=== PATIENT | male | born 2005 | race Hispanic/Latino ===

== ENCOUNTER → 2024-12-23 | Emergency (ER) | payer SELFPAY ==
[~2024-12-23] VITALS: Ht 170.2 cm; Wt 63.5 kg
[2024-12-23 18:23] VITALS: BP 142/79; PULSE 99; RESP 16; TEMP 97.8
--- NOTE | 2024-12-23 19:24 | ERN ---
General Chief Complaint: Cough Stated Complaint: FEVER, CONGESTION, TOOTHACHE Time Seen by MD: 18:28 Time Seen by Midlevel: 18:28 Source: patient History of Present Illness Initial Comments 19-year-old male who presents to the emergency department due to fever onset five days. Mother reports cough, congestion, body aches. Denies any abdominal pain, difficulty breathing, nausea, vomiting, diarrhea or further associated symptoms. Allergies: Coded Allergies: No Known Allergies (Unverified Allergy, Unknown, 12/23/24) Past Medical History Past Medical History: No Pertinent History Past Surgical History: Appendectomy ROS Dictation Constitutional: Positive for fever, body aches Negative for chills, and weight loss Eyes: Negative for injury, pain,redness, and discharge ENT: Positive for congestion Negative for injury,pain or swelling Cardiovascular: Negative for chest pain, palpitations, and edema Respiratory: Positive for cough Negative for shortness of breath, and wheezing, Abdomen/GI: Negative for abdominal pain, nausea, vomiting, diarrhea, and constipation Back: Negative for injury and pain : Negative for painful urination, bleeding or discharge MS/Extremity: Negative for injury and deformity Skin: Negative for rash, and discoloration Neuro: Negative for headache, weakness, numbness, tingling, and seizure Psych: Negative for suicide ideation, homicidal ideation, and hallucinations Physical Exam Physical Exam Dictation General: awake, alert, no acute distress Head/Face: Normocephalic, atraumatic Eyes: PERRL, EOMI, normal conjunctiva ENT: oral cavity clear, TMs clear, oral mucosa moist, mild erythematous pharynx Neck: Supple, normal range of motion Cardiovascular: RRR, normal S1/S2 Respiratory: CTAB, no respiratory distress, no rales or wheezes Skin: Warm, dry, normal turgor, no rash MS/Extremity: Pulses equal, no cyanosis, neurovascular intact, FROM Neuro: COAx4, GCS 15, strength 5/5, CN 2-12 intact, normal cerebellar exam, normal gait Psych: Normal behavior, mood, and affect normal MDM MDM: Differential diagnosis: Viral illness, SARs, strep, influenza Rationale: 19-year-old male who presents to the emergency department due to fever onset five days. Mother reports cough, congestion, body aches. Denies any abdominal pain, difficulty breathing, nausea, vomiting, diarrhea or further associated symptoms. Per physical examination patient is in no acute distress, nonlabored breathing, mild erythema noted to the pharynx. SARs, influenza, strep swabs ordered. Patient eloped from the emergency department. There are no social concerns with this patient. ED Course Orders Procedure Category Date Status Time Covid19 (Sars Antigen LAB 12/23/24 Logged Rapid) 18:38 Influenza Type A & B, LAB 12/23/24 Logged Rapid 18:38 Rapid (Group A Strep) LAB 12/23/24 Logged 18:38 Chest 1vw RAD 12/23/24 Logged 18:38 Vital Signs Date Time Temp Pulse Resp B/P (MAP) Pulse Ox O2 Delivery O2 Flow Rate FiO2 12/23/24 18:23 97.9 99 16 142/79 99 Room Air 0 DX & DISP Disposition: Other(Comment) (No) Departure Impression: Primary Impression: Eloped from emergency department Condition: Stable Referrals: SELF,REFERRAL (PCP) I performed the substantive portion of the visit. I have reviewed and personally made and approve the management plan that is documented in the notes by myself or the DENITA. I acknowledge full responsibility for the patient's management plan. LYNNE BANERJEE Dec 23, 2024 19:24
== END ==
LOC: EDH 18:20
DX: R50.9 Fever, unspecified (principal); R09.81 Nasal congestion; R05.9 Cough, unspecified; Z90.49 Acquired absence of other specified parts of digestive tract
CPT/HCPCS: 99282